=== PATIENT | female | born 1945 | race African-American/Black ===

== ENCOUNTER 2017-05-11 10:58 | Emergency (ER) | payer MEDICARE, OTHER ==
[~2017-05-11] VITALS: Ht 160 cm; Wt 62.5 kg
[~2017-05-11 10:58] MED LIST: AMLO5TAB96 PO; CIPR500T2 OR; LISI-363 PO; ROSU10 PO
[2017-05-11 10:59] VITALS: BP 173/76; PULSE 78; RESP 20; TEMP 99.6; O2SAT 97
[2017-05-11] MEDS ORDERED: SODIUM CHLORIDE 0.9% FLUSH 10 ML FLUSH IVF PRN (11:45)
--- NOTE | 2017-05-11 11:59 | PD ---
HPI Chief Complaint: Complaint Time Seen by Provider: 11:56 Travel History International Travel<30 days: No Contact w/Intl Traveler<30days: No Traveled to known affect area: No History of Present Illness HPI Patient is a 72-year-old female presenting to emergency for evaluation of blood in her urine. Patient states she noticed it yesterday, she also reports right flank pain. She denies any nausea, vomiting, fever, chills. She does state that she has a tenderness in her suprapubic region. She states the pain is mild , 2 out of 10. She denies any history of kidney stones. She reports urinary tract infections every 2-3 years however she has not had one in 5 years. Her primary care provider is Dr. Arteaga. [facility] Past Medical History Blood Disorders: No High Cholesterol: Yes Chemotherapy: No Diabetes: No ("PRE DIABETIC") Diminished Hearing: No Genitourinary: No Hypertension: Yes Musculoskeletal: No Neurologic: No Psychiatric: No Reproductive: No Respiratory: No Radiation Therapy: No Past Surgical History Abdominal Surgery: No AICD: No Arteriovenous Shunt: No Cardiac Surgery: No Ear Surgery: No Endocrine Surgery: No Eye Surgery: No Genitourinary Surgery: No Gynecologic Surgery: No Hysterectomy: Yes Insulin Pump: No Joint Replacement: No Oral Surgery: No Pacemaker: No Thoracic Surgery: No Other Surgery: Yes Social History Alcohol Use: Yes (beer occ) Tobacco Use: Yes (<1/2PPD) Substance Use: No Allergies-Medications (Allergen,Severity, Reaction): Coded Allergies: Sulfa (Verified Allergy, Severe, 09/01/12) Reported Meds & Prescriptions Reported Meds & Active Scripts Active Percocet (Oxycodone-Acetaminophen) 5-325 mg Tab 1 Tab PO Q6H PRN Flomax (Tamsulosin HCl) 0.4 Mg Cap 0.4 Mg PO HS 10 Days Reported Amlodipine (Amlodipine Besylate) 5 Mg Tab 5 Mg PO DAILY Simvastatin 20 Mg Tab 20 Mg PO DAILY Lisinopril 20 Mg Tab 20 Mg PO DAILY Review of Systems Except as stated in HPI: all other systems reviewed are Neg General / Constitutional: No: Fever, Chills HENT: No: Headaches Cardiovascular: No: Chest Pain or Discomfort Respiratory: No: Shortness of Breath Gastrointestinal: No: Nausea, Vomiting Genitourinary: Positive: Hematuria, Pelvic Pain, Flank Pain Neurologic: No: Weakness Physical Exam Narrative GENERAL: Well-developed, well-nourished, alert female. Resting comfortably in no acute distress. SKIN: Warm and dry. HEAD: Atraumatic. Normocephalic. EYES: Pupils equal and round. No scleral icterus. No injection or drainage. ENT: No nasal bleeding or discharge. Mucous membranes pink and moist. NECK: Trachea midline. No JVD. CARDIOVASCULAR: Regular rate and rhythm. RESPIRATORY: No accessory muscle use. Clear to auscultation. Breath sounds equal bilaterally. GASTROINTESTINAL: Abdomen soft, non-tender, nondistended. Hepatic and splenic margins not palpable. Positive bowel sounds, no rebound, no guarding MUSCULOSKELETAL: Extremities without clubbing, cyanosis, or edema. No obvious deformities. No CVAT bilaterally NEUROLOGICAL: Awake and alert. No obvious cranial nerve deficits. Motor grossly within normal limits. Five out of 5 muscle strength in the arms and legs. Normal speech. PSYCHIATRIC: Appropriate mood and affect; insight and judgment normal. Data Data Last Documented VS Vital Signs Date Time Temp Pulse Resp B/P Pulse Ox O2 Delivery O2 Flow Rate FiO2 05/11/17 12:25 05/11/17 10:59 99.6 78 20 97 Room Air Orders Complete Blood Count With Diff (05/11/17 11:40) Comprehensive Metabolic Panel (05/11/17 11:40) Urinalysis - C+S If Indicated (05/11/17 11:40) Ct Abd/Pel W/O Iv Contrast (05/11/17 11:40) Ecg Monitoring (05/11/17 11:40) Iv Access Insert/Monitor (05/11/17 11:40) Sodium Chloride 0.9% Flush (Ns Flush) (05/11/17 11:45) Labs Laboratory Tests Test 05/11/17 05/11/17 11:30 12:10 Urine Color LIGHT-RED Urine Turbidity HAZY Urine pH 5.0 Urine Specific [place] 1.011 Urine Protein 30 mg/dL Urine Glucose (UA) NEG mg/dL Urine Ketones NEG mg/dL Urine Occult Blood LARGE Urine Nitrite NEG Urine Bilirubin NEG Urine Urobilinogen LESS THAN 2.0 MG/DL Urine Leukocyte Esterase TRACE Urine RBC /hpf Urine WBC 4 /hpf Urine Squamous Epithelial 1 /hpf Cells Urine Bacteria OCC /hpf Urine Mucus FEW /lpf Microscopic Urinalysis Comment CULT NOT INDICATED White Blood Count 5.9 TH/MM3 Red Blood Count 4.25 MIL/MM3 Hemoglobin 14.2 GM/DL Hematocrit 40.2 % Mean Corpuscular Volume 94.7 FL Mean Corpuscular Hemoglobin 33.4 PG Mean Corpuscular Hemoglobin 35.2 % Concent Red Cell Distribution Width 13.5 % Platelet Count 246 TH/MM3 Mean Platelet Volume 8.7 FL Neutrophils (%) (Auto) 62.4 % Lymphocytes (%) (Auto) 29.1 % Monocytes (%) (Auto) 6.7 % Eosinophils (%) (Auto) 1.5 % Basophils (%) (Auto) 0.3 % Neutrophils # (Auto) 3.7 TH/MM3 Lymphocytes # (Auto) 1.7 TH/MM3 Monocytes # (Auto) 0.4 TH/MM3 Eosinophils # (Auto) 0.1 TH/MM3 Basophils # (Auto) 0.0 TH/MM3 CBC Comment DIFF FINAL Differential Comment Sodium Level 142 MEQ/L Potassium Level 3.8 MEQ/L Chloride Level 108 MEQ/L Carbon Dioxide Level 26.6 MEQ/L Anion Gap 7 MEQ/L Blood Urea Nitrogen 9 MG/DL Creatinine 0.55 MG/DL Estimat Glomerular Filtration 131 ML/MIN Rate Random Glucose 90 MG/DL Calcium Level 10.0 MG/DL Total Bilirubin 0.4 MG/DL Aspartate Amino Transf 13 U/L (AST/SGOT) Alanine Aminotransferase 21 U/L (ALT/SGPT) Alkaline Phosphatase 94 U/L Total Protein 7.6 GM/DL Albumin 3.9 GM/DL MDM Medical Decision Making Medical Screen Exam Complete: Yes Emergency Medical Condition: Yes Interpretation(s) Laboratory Tests Test 05/11/17 05/11/17 11:30 12:10 Urine Color LIGHT-RED Urine Turbidity HAZY Urine pH 5.0 Urine Specific Challenge 1.011 Urine Protein 30 mg/dL Urine Glucose (UA) NEG mg/dL Urine Ketones NEG mg/dL Urine Occult Blood LARGE Urine Nitrite NEG Urine Bilirubin NEG Urine Urobilinogen LESS THAN 2.0 MG/DL Urine Leukocyte Esterase TRACE Urine RBC /hpf Urine WBC 4 /hpf Urine Squamous Epithelial 1 /hpf Cells Urine Bacteria OCC /hpf Urine Mucus FEW /lpf Microscopic Urinalysis Comment CULT NOT INDICATED White Blood Count 5.9 TH/MM3 Red Blood Count 4.25 MIL/MM3 Hemoglobin 14.2 GM/DL Hematocrit 40.2 % Mean Corpuscular Volume 94.7 FL Mean Corpuscular Hemoglobin 33.4 PG Mean Corpuscular Hemoglobin 35.2 % Concent Red Cell Distribution Width 13.5 % Platelet Count 246 TH/MM3 Mean Platelet Volume 8.7 FL Neutrophils (%) (Auto) 62.4 % Lymphocytes (%) (Auto) 29.1 % Monocytes (%) (Auto) 6.7 % Eosinophils (%) (Auto) 1.5 % Basophils (%) (Auto) 0.3 % Neutrophils # (Auto) 3.7 TH/MM3 Lymphocytes # (Auto) 1.7 TH/MM3 Monocytes # (Auto) 0.4 TH/MM3 Eosinophils # (Auto) 0.1 TH/MM3 Basophils # (Auto) 0.0 TH/MM3 CBC Comment DIFF FINAL Differential Comment Sodium Level 142 MEQ/L Potassium Level 3.8 MEQ/L Chloride Level 108 MEQ/L Carbon Dioxide Level 26.6 MEQ/L Anion Gap 7 MEQ/L Blood Urea Nitrogen 9 MG/DL Creatinine 0.55 MG/DL Estimat Glomerular Filtration 131 ML/MIN Rate Random Glucose 90 MG/DL Calcium Level 10.0 MG/DL Total Bilirubin 0.4 MG/DL Aspartate Amino Transf 13 U/L (AST/SGOT) Alanine Aminotransferase 21 U/L (ALT/SGPT) Alkaline Phosphatase 94 U/L Total Protein 7.6 GM/DL Albumin 3.9 GM/DL Vital Signs Date Time Temp Pulse Resp B/P Pulse Ox O2 Delivery O2 Flow Rate FiO2 05/11/17 10:59 99.6 78 20 173/76 97 Room Air Differential Diagnosis Kidney stone versus UTI versus pyelonephritis versus other Narrative Course Patient is a 72-year-old female presenting for evaluation of hematuria. Patient denied any urinary complaints other than right flank pain. Patient's vital signs are stable, she is nontoxic appearing. Labs and imaging were ordered and pending. CBC, chemistry reviewed and are unremarkable. Urinalysis with innumerable red blood cells, large amount of occult blood. CT scan of the abdomen and pelvis is ordered and pending. CT scan abdomen and pelvis shows a tiny calcified nonobstructing right renal calculi with the largest measuring 6 mm. So noted to be a 2 cm area of decreased attenuation in the right lobe of the liver as well as bilateral adrenal masses that could be followed up with an outpatient MRI. This was discussed with patient and her daughter. They were provided with a copy of the CT report. Pt will be discharged home on Flomax and with a short course of narcotic pain medication for breakthrough pain. She was encouraged to increase fluid intake. She was advised to follow up with PCP and urology. She was further advised to return to the ED immediately for any new or worsening symptoms. Pt and daughter verbalized understanding. Pt is stable for discharge. Diagnosis Primary Impression: Kidney stone Referrals: Primary Care Physician 2 days Urologist Patient Instructions: General Instructions, Kidney Stones (ED) Additional Instructions: Increase fluid intake Follow-up with your primary doctor Follow-up with a urologist Return to emergency department immediately for any new or worsening symptoms Do not drive or operate machinery while taking narcotic pain medication Med/Other Pt SpecificInfo: Prescription(s) given Scripts Oxycodone-Acetaminophen (Percocet)5-325 mg Tab1 Tab PO Q6H PRN (PAIN) #10 TAB Ref 0 Prov:Viviane Dawson DO 05/11/17 Tamsulosin (Flomax)0.4 Mg Cap0.4 Mg PO HS 10 Days Ref 0 Prov:Hortensia Garcia 05/11/17 Disposition: 01 DISCHARGE HOME Condition: Stable Hortensia Garcia May 11, 2017 11:59
[2017-05-11] MEDS ORDERED: LISI-515 PO (12:25)
[2017-05-11] MEDS ORDERED: SIMV20TA PO (12:25)
[2017-05-11] MEDS ORDERED: AMLO5TAB2 PO (12:25)
[2017-05-11 12:47] LABS: AUTOMATED NEUTROPHIL # 3.7 TH/MM3 (1.8-7.7); BASOPHIL % 0.3 % (0.0-2.0); EOSINOPHIL # 0.1 TH/MM3 (0-0.4); EOSINOPHIL % 1.5 % (0.0-4.0); HEMATOCRIT 40.2 % (35.0-46.0); HEMO FLAGS DIFF FINAL; LYMPH % 29.1 % (9.0-44.0); LYMPHOCYTE # 1.7 TH/MM3 (1.0-4.8); MEAN CELL VOLUME 94.7 FL (80.0-100.0); MEAN CORPUSCULAR HEMOGLOBIN 33.4 PG (27.0-34.0); MEAN CORPUSCULAR HGB CONC 35.2 % (32.0-36.0); MONO % 6.7 % (0.0-8.0); NEUT % 62.4 % (16.0-70.0); PLATELET COUNT 246 TH/MM3 (150-450); RED BLOOD COUNT 4.25 MIL/MM3 (4.00-5.30); RED CELL DISTRIBUTION WIDTH 13.5 % (11.6-17.2); WHITE BLOOD COUNT 5.9 TH/MM3 (4.0-11.0)
[2017-05-11 12:52] LABS: BACTERIA, URINE OCC /hpf; BLOOD, URINE LARGE (NEG); COMMENT (UR) CULT NOT INDICATED; CULTURE IF INDICATED CULT NOT INDICATED; GLUCOSE,URINE NEG (NEG); KETONE, URINE NEG (NEG); MUCUS URINE FEW /lpf (OCC); NITRITE,URINE NEG (NEG); SQUAMOUS EPITHELIAL CELL URINE 1 /hpf (0-5)
[2017-05-11 13:00] LABS: URINE COLOR LIGHT-RED (YELLW/STRAW)
[2017-05-11 13:05] LABS: ALT (GPT) 21 U/L (10-53); ANION GAP 7 MEQ/L (5-15); AST (GOT) 13 U/L (15-37); BICARBONATE 26.6 MEQ/L (21.0-32.0); BLOOD UREA NITROGEN 9 MG/DL (7-18); CHLORIDE 108 MEQ/L (98-107); GLOMERULAR FILTRATION RATE 131 ML/MIN (>89); POTASSIUM 3.8 MEQ/L (3.5-5.1); SODIUM (NA) 142 MEQ/L (136-145)
[2017-05-11 13:08] LABS: ALKALINE PHOSPHATASE 94 U/L (45-117); TOTAL BILIRUBIN ADULT 0.4 MG/DL (0.2-1.0)
--- NOTE | 2017-05-11 13:29 | PD ---
Physical Exam Narrative I, Dr. Dawson, have reviewed the advance practice practitioner's documentation and am in agreement, met with the patient face to face, made the diagnosis, and the medical decision making was done by me. *My assessment and Findings: Nephrolithiasis vs. pyelonephritis 72yo F with hematuria and right flank pain. Pt is well appearing and has no abdominal tenderness on exam. Denies any fever, nausea or vomiting. Labs reviewed, no leukocytosis. Normal creatinine. UA showed large blood. Trace leukocyte. Culture not indicated. CT a/p showed nonobstructing right renal calculus which is likely cause of her pain. Also showed bilateral adrenal masses and decreased attenuation in right liver lobe which can be followed up with outpatient MRI. Pt informed of this. Pt tolerating PO and well appearing. Return precautions given. Data Data Last Documented VS Vital Signs Date Time Temp Pulse Resp B/P Pulse Ox O2 Delivery O2 Flow Rate FiO2 05/11/17 12:25 05/11/17 10:59 99.6 78 20 97 Room Air Orders Complete Blood Count With Diff (05/11/17 11:40) Comprehensive Metabolic Panel (05/11/17 11:40) Urinalysis - C+S If Indicated (05/11/17 11:40) Ct Abd/Pel W/O Iv Contrast (05/11/17 11:40) Ecg Monitoring (05/11/17 11:40) Iv Access Insert/Monitor (05/11/17 11:40) Sodium Chloride 0.9% Flush (Ns Flush) (05/11/17 11:45) Labs Laboratory Tests Test 05/11/17 05/11/17 11:30 12:10 Urine Color LIGHT-RED Urine Turbidity HAZY Urine pH 5.0 Urine Specific [place] 1.011 Urine Protein 30 mg/dL Urine Glucose (UA) NEG mg/dL Urine Ketones NEG mg/dL Urine Occult Blood LARGE Urine Nitrite NEG Urine Bilirubin NEG Urine Urobilinogen LESS THAN 2.0 MG/DL Urine Leukocyte Esterase TRACE Urine RBC /hpf Urine WBC 4 /hpf Urine Squamous Epithelial 1 /hpf Cells Urine Bacteria OCC /hpf Urine Mucus FEW /lpf Microscopic Urinalysis Comment CULT NOT INDICATED White Blood Count 5.9 TH/MM3 Red Blood Count 4.25 MIL/MM3 Hemoglobin 14.2 GM/DL Hematocrit 40.2 % Mean Corpuscular Volume 94.7 FL Mean Corpuscular Hemoglobin 33.4 PG Mean Corpuscular Hemoglobin 35.2 % Concent Red Cell Distribution Width 13.5 % Platelet Count 246 TH/MM3 Mean Platelet Volume 8.7 FL Neutrophils (%) (Auto) 62.4 % Lymphocytes (%) (Auto) 29.1 % Monocytes (%) (Auto) 6.7 % Eosinophils (%) (Auto) 1.5 % Basophils (%) (Auto) 0.3 % Neutrophils # (Auto) 3.7 TH/MM3 Lymphocytes # (Auto) 1.7 TH/MM3 Monocytes # (Auto) 0.4 TH/MM3 Eosinophils # (Auto) 0.1 TH/MM3 Basophils # (Auto) 0.0 TH/MM3 CBC Comment DIFF FINAL Differential Comment Sodium Level 142 MEQ/L Potassium Level 3.8 MEQ/L Chloride Level 108 MEQ/L Carbon Dioxide Level 26.6 MEQ/L Anion Gap 7 MEQ/L Blood Urea Nitrogen 9 MG/DL Creatinine 0.55 MG/DL Estimat Glomerular Filtration 131 ML/MIN Rate Random Glucose 90 MG/DL Calcium Level 10.0 MG/DL Total Bilirubin 0.4 MG/DL Aspartate Amino Transf 13 U/L (AST/SGOT) Alanine Aminotransferase 21 U/L (ALT/SGPT) Alkaline Phosphatase 94 U/L Total Protein 7.6 GM/DL Albumin 3.9 GM/DL MDM Supervised Visit with ALONSO: Yes Diagnosis Primary Impression: Kidney stone Scripts Oxycodone-Acetaminophen (Percocet)5-325 mg Tab1 Tab PO Q6H PRN (PAIN) #10 TAB Ref 0 Prov:Viviane Dawson DO 05/11/17 Tamsulosin (Flomax)0.4 Mg Cap0.4 Mg PO HS 10 Days Ref 0 Prov:Hortensia Garcia 05/11/17 Viviane Dawson DO May 11, 2017 13:29
--- NOTE | 2017-05-11 14:46 | RADRPT ---
EXAM DATE/TIME: 05/11/2017 14:14 [place] COMPARISON: No previous studies available for comparison. INDICATIONS : Right lower quadrant pain, blood in urine. ORAL CONTRAST: No oral contrast ingested. RADIATION DOSE: 8.53 CTDIvol (mGy) MEDICAL HISTORY : Renal calculi. Hypertension. Diabetes mellitus type 2. SURGICAL HISTORY : Hysterectomy. ENCOUNTER: Initial ACUITY: 1 day PAIN SCALE: 5/10 LOCATION: Right lower quadrant TECHNIQUE: Volumetric scanning of the abdomen and pelvis was performed. Using automated exposure control and ad justment of the mA and/or kV according to patient size, radiation dose was kept as low as reasonably achievable to obtain optimal diagnostic quality images. DICOM format image data is available electro nically for review and comparison. FINDINGS: There is evidence of several calcifications within the right kidney consistent with probable nonobstr ucting calculi. The largest calcification measures 6 mm. No acute obstructive uropathy is noted. Th ere is a vague area of decreased attenuation within the right lobe of the liver measuring 2 cm which is indeterminate. MRI of the abdomen with contrast may be helpful for further characterization of th is finding and can be performed as an outpatient if clinically indicated. No biliary ductal dilatati on is noted. Uncomplicated colonic diverticulosis is noted. No acute diverticulosis is noted. There is a 3.1 x 2.7 cm right adrenal mass and a 2.2 x 1.1 cm left adrenal mass. These also can be assess ed on MRI of the abdomen with contrast to determine if they represent adenomas or other more suspicio us lesions. Degenerative changes and scoliosis of the lumbar spine are noted. CONCLUSION: 1. Vague area of decreased attenuation within the right lobe of the liver measuring 2 cm which is ind eterminate. MRI of the abdomen with contrast may be helpful for further characterization and can be performed as an outpatient if clinically indicated. 2. Bilateral adrenal masses measuring 3.1 x 2.7 cm on the right and 2.2 x 1.1 cm on the left. These also can be reassessed with MRI of the abdomen with contrast to determine if these represent adenomas or other more suspicious adrenal lesions. 3. Tiny calcified nonobstructing right renal calculi with the largest measuring 6 mm. 4. Uncomplicated colonic diverticulosis. 5. Degenerative changes and scoliosis of the lumbar spine. Lopez Patel MD on May 11, 2017 at 14:30 Board Certified Radiologist. This report was verified electronically.
[2017-05-11] MEDS ORDERED: TAMS5CAP PO (15:00)
[2017-05-11] MEDS ORDERED: PERC5TAB12 PO (15:00)
== END 2017-05-11 16:25 | disposition home or self-care (01) ==
LOC: NEPD 10:58
DX: N20.0 Calculus of kidney (principal); R31.9 Hematuria, unspecified; E78.00 Pure hypercholesterolemia, unspecified; I10 Essential (primary) hypertension; F17.210 Nicotine dependence, cigarettes, uncomplicated; Z79.899 Other long term (current) drug therapy
CPT/HCPCS: 74176; 80053; 81001; 85025; 99284